=== PATIENT | male | born 1970 | race Caucasian/White ===

== ENCOUNTER 2019-03-13 07:42 | Inpatient (IN) | payer MEDICAID ==
[~2019-03-13] VITALS: Ht 188 cm; Wt 86.4 kg
[2019-03-13 08:30] LABS: BASOPHILS # (AUTO) 0.1 X10'3 (0-0.2); BASOPHILS % (AUTO) 0.8 % (0-1); EOSINOPHILS # (AUTO) 0.1 X10'3 (0-0.9); EOSINOPHILS % (AUTO) 0.8 % (0-6); HEMATOCRIT 47.2 % (42.0-52.0); HEMOGLOBIN 15.7 g/dl (14.0-17.9); LYMPHOCYTES # (AUTO) 1.7 X10'3 (1.1-4.8); LYMPHOCYTES % (AUTO) 13.2 % (21-51); MEAN CORPUSCULAR HEMOGLOBIN 29.2 PG (27.0-31.0); MEAN CORPUSCULAR HGB CONC 33.3 g/dL (33.0-36.5); MEAN CORPUSCULAR VOLUME 87.6 FL (78-98); MEAN PLATELET VOLUME 9.6 FL (7.4-10.4); MONOCYTES # (AUTO) 0.9 X10'3 (0-0.9); MONOCYTES % (AUTO) 7.1 % (2-12); NEUTROPHILS # (AUTO) 10.2 X10'3 (1.8-7.7); NEUTROPHILS % (AUTO) 78.1 % (42-75); PLATELET COUNT 341 X10'3 (140-440); RED BLOOD COUNT 5.38 X10'6 (4.70-6.10); RED CELL DISTRIBUTION WIDTH 15.1 % (11.5-14.5); WHITE BLOOD COUNT 13.1 X10'3 (4.5-11.0)
[2019-03-13 08:47] LABS: ALANINE AMINOTRANSFERASE 23 U/L (12-78); ALBUMIN 3.6 G/DL (3.4-5.0); ALBUMIN/GLOBULIN RATIO 0.7 (1.1-1.5); ALKALINE PHOSPHATASE 121 IU/L (46-116); ANION GAP 15 (8-16); ASPARTATE AMINO TRANSFERASE 24 U/L (10-37); BILIRUBIN,TOTAL 0.8 MG/DL (0.1-1.0); BLOOD UREA NITROGEN 8 MG/DL (7-18); BUN/CREATININE RATIO 6.1 (5.4-32.0); CALCIUM 9.8 MG/DL (8.5-10.1); CHLORIDE 97 MMOL/L (99-107); CREATININE 1.32 MG/DL (0.60-1.10); GLUCOSE 86 MG/DL (70-104); MAGNESIUM 2.1 MG/DL (1.5-2.4); POTASSIUM 3.3 MMOL/L (3.5-5.1); SODIUM 137 MMOL/L (135-145); TOTAL CARBON DIOXIDE 25.4 MMOL/L (24-32); TOTAL PROTEIN 9.1 G/DL (6.4-8.2); eGFR 57 ML/MIN
[2019-03-13 08:52] LABS: PARTIAL THROMBOPLASTIN TIME 31 SECONDS (22-32)
[2019-03-13] MEDS ORDERED: vancomycin/NS 1 GM ADD-VANTAGE 250 ML IV ONE (09:05)
[2019-03-13] MEDS ORDERED: levoFLOXACIN-Levaquin 750MG/D5 150 ML IV ONE (09:05)
[2019-03-13 09:34] LABS: CLARITY,URINE CLEAR (Clear); COLOR,URINE YELLOW (Yellow); GLUCOSE, URINE NEGATIVE (Neg); KETONES,URINE 40 mg/dl (Neg); LEUKOCYTE ESTERASE ,URINE NEGATIVE (Neg); NITRITES, URINE NEGATIVE (Neg); OCCULT BLOOD,URINE NEGATIVE (Neg); PROTEIN,URINE TRACE mg/dl (Neg)
[2019-03-13 09:35] LABS: UA COLLECTION TYPE CLN CATCH MIDSTREAM
[2019-03-13] MEDS ORDERED: normal saline 1000ML IV soln IV ONE (09:35)
[2019-03-13 09:53] LABS: MUCUS STRANDS FEW /LPF (Neg); SQUAMOUS EPITHELIAL CELL,UR FEW /LPF (FEW)
[2019-03-13 09:54] LABS: HYALINE CASTS 0-3 /LPF (NEGATIVE)
[2019-03-13 10:01] LABS: BACTERIA,URINE FEW /HPF (Neg); RBC,URINE 0-2 /HPF (0-2)
[2019-03-13 10:03] LABS: SPERM MODERATE /HPF (NEGATIVE)
[2019-03-13] MEDS ORDERED: magnesium Cl slow-release 64mg tablet PO PRN (10:05)
[2019-03-13] MEDS ORDERED: magnesium 4gm in 100ml NS 100 ML IV PRN (10:05)
[2019-03-13] MEDS ORDERED: potassium CL 10mEq/100ml bag 100 ML IV PRN ×2 (10:05)
[2019-03-13] MEDS ORDERED: magnesium hydroxide 30ml (MOM) UD suspension PO PRN (10:05)
[2019-03-13] MEDS ORDERED: magnesium 2GM in 50ml NS 50 ML IV PRN (10:05)
[2019-03-13] MEDS ORDERED: ondansetron/PF 4mg/2ml inj IV PRN (10:05)
[2019-03-13] MEDS ORDERED: mag hydrox/Alum hydrox/simeth 30ml oral suspension PO PRN (10:05)
[2019-03-13] MEDS ORDERED: morphine 2 MG/ML inj. syringe IV PRN ×2 (10:05)
[2019-03-13] MEDS ORDERED: acetaminophen 325mg tablet PO PRN (10:05)
[2019-03-13] MEDS ORDERED: HYDROcodone/acetaminophen 5mg/325mg tablet PO PRN (10:05)
[2019-03-13] MEDS ORDERED: potassium Cl 20 mEq SR tablet PO PRN (10:05)
--- NOTE | 2019-03-13 11:01 | NUR ---
Received patient report from Mae NATALY
[2019-03-13 12:15] VITALS: BP 114/76
[2019-03-13 13:35] LABS: URINE AMPHETAMINE SCREEN POSITIVE (Neg); URINE BARBITUATE SCREEN NEGATIVE (Neg); URINE BENZODIAZEPINES SCREEN NEGATIVE (Neg); URINE CANNABINOID SCREEN NEGATIVE (Neg); URINE COCAINE SCREEN NEGATIVE (Neg); URINE METHADONE SCREEN NEGATIVE (Neg); URINE OPIATE SCREEN NEGATIVE (Neg); URINE PHENCYCLIDINE SCREEN NEGATIVE (Neg)
[2019-03-13] MEDS: potassium Cl 20 mEq SR tablet PO PRN ×2 (14:20→19:40)
[2019-03-13] MEDS: normal saline 1000ml 1,000 ML IV SCH ×2 (14:21→19:34)
--- NOTE | 2019-03-13 16:17 | NUR ---
Paged Dr. Lepe about patient refusing tele monitor. Waiting for response.
--- NOTE | 2019-03-13 18:23 | NUR ---
Patient report given to Mimi Coombs RN
[2019-03-13] MEDS: LORazepam 1 MG tablet PO PRN (20:44)
[2019-03-13 22:00] VITALS: BP 128/78
--- NOTE | 2019-03-13 22:39 | NUR ---
AFTER SEVERAL ATTEMPTS OF PLACING PIV, EVEN AFTER DOSE OF ATIVAN, UNABLE TO GAIN ACCESS. CALLED MD. NEW ORDER FOR CLINDAMYCIN 300MG PO Q 8HRS, UNTIL IV ACCESS CAN BE OBTAINED.
[2019-03-13] MEDS: VANCOmycin 1250MG/NS 250ml Bag 250 ML IV SCH (23:00)
[2019-03-14] MEDS: clindamycin 150mg capsule PO SCH ×3 (00:18→17:46)
[2019-03-14] MEDS: LORazepam 1 MG tablet PO PRN ×2 (01:01→19:22)
[2019-03-14 06:00] VITALS: BP 125/61
[2019-03-14] MEDS: normal saline 1000ml 1,000 ML IV SCH (06:05)
--- NOTE | 2019-03-14 06:08 | NUR ---
Problems reprioritized. Patient report given, questions answered & plan of care reviewed with TOD Cody.
--- NOTE | 2019-03-14 06:25 | NUR ---
RECEIVED REPORT FROM TOD VEGA
[2019-03-14] MEDS: levoFLOXACIN-Levaquin 750MG/D5 150 ML IV SCH (08:00)
[2019-03-14] MEDS: K and/or MAG REPLACEMENT MC SCH (08:00)
[2019-03-14] MEDS: enoxaparin 40mg/0.4ml syringe SQ SCH (08:09)
--- NOTE | 2019-03-14 08:46 | NUR ---
gave report to kari singh
[2019-03-14 09:13] LABS: BASOPHILS # (AUTO) 0.1 X10'3 (0-0.2); EOSINOPHILS # (AUTO) 0.1 X10'3 (0-0.9); EOSINOPHILS % (AUTO) 1.6 % (0-6); HEMATOCRIT 39.2 % (42.0-52.0); LYMPHOCYTES % (AUTO) 26.2 % (21-51); MEAN CORPUSCULAR HEMOGLOBIN 28.7 PG (27.0-31.0); MEAN CORPUSCULAR HGB CONC 33.2 g/dL (33.0-36.5); MEAN CORPUSCULAR VOLUME 86.5 FL (78-98); MEAN PLATELET VOLUME 9.7 FL (7.4-10.4); MONOCYTES # (AUTO) 1.3 X10'3 (0-0.9); MONOCYTES % (AUTO) 16.7 % (2-12); NEUTROPHILS # (AUTO) 4.2 X10'3 (1.8-7.7); NEUTROPHILS % (AUTO) 54.5 % (42-75); PLATELET COUNT 287 X10'3 (140-440); RED BLOOD COUNT 4.53 X10'6 (4.70-6.10); RED CELL DISTRIBUTION WIDTH 14.8 % (11.5-14.5); WHITE BLOOD COUNT 7.6 X10'3 (4.5-11.0)
[2019-03-14 09:20] LABS: ALBUMIN 2.6 G/DL (3.4-5.0); ANION GAP 9 (8-16); BLOOD UREA NITROGEN 5 MG/DL (7-18); BUN/CREATININE RATIO 6.3 (5.4-32.0); CALCIUM 9.1 MG/DL (8.5-10.1); CHLORIDE 108 MMOL/L (99-107); CREATININE 0.79 MG/DL (0.60-1.10); GLUCOSE 87 MG/DL (70-104); MAGNESIUM 2.1 MG/DL (1.5-2.4); POTASSIUM 3.7 MMOL/L (3.5-5.1); SODIUM 144 MMOL/L (135-145); TOTAL CARBON DIOXIDE 26.8 MMOL/L (24-32); eGFR > 90 ML/MIN
[2019-03-14 10:00] VITALS: BP 114/79
[2019-03-14] MEDS ORDERED: FLU VACC QS2019-20 36MOS UP/PF 60 MCG/0.5 ML SYRINGE IMVAC ONE (10:00)
[2019-03-14] MEDS: VANCOmycin 1250MG/NS 250ml Bag 250 ML IV SCH ×2 (10:27→19:22)
[2019-03-14 13:29] LABS: PLATELET ESTIMATE NORMAL; TOTAL CELLS COUNTED 100
[2019-03-14 13:30] LABS: LARGE PLATELETS FEW
--- NOTE | 2019-03-14 13:47 | NUR ---
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 Pt has normal strength PO 75-100% meals meeting needs and current wt is pt stated w/ no prior wt hx. At this time pt does not meet minimum malnutrition criteria. Addendum: 03/14/19 at [address] Amended: Links added.
[2019-03-14 18:00] VITALS: BP 131/91
--- NOTE | 2019-03-14 18:30 | NUR ---
Problems reprioritized. Patient report given, questions answered & plan of care reviewed with TOD Caruso.
[2019-03-14] MEDS: lactobacillus rhamnosus 10,000 MMU CELLS/CAPSULE PO SCH (19:22)
[2019-03-14 22:00] VITALS: BP 114/78
[2019-03-15] MEDS: clindamycin 150mg capsule PO SCH ×2 (00:31→08:01)
[2019-03-15] MEDS: normal saline 1000ml 1,000 ML IV SCH ×3 (02:05→12:05)
[2019-03-15] MEDS: VANCOmycin 1250MG/NS 250ml Bag 250 ML IV SCH ×3 (02:53→19:15)
--- NOTE | 2019-03-15 06:21 | NUR ---
Patient in room [facility] 4021. I have received report from Shelley and had the opportunity to ask questions and assume patient care.
--- NOTE | 2019-03-15 06:24 | NUR ---
Received report from Zuly RN
[2019-03-15 06:38] VITALS: BP 118/70
[2019-03-15] MEDS: K and/or MAG REPLACEMENT MC SCH (08:00)
[2019-03-15] MEDS: lactobacillus rhamnosus 10,000 MMU CELLS/CAPSULE PO SCH ×2 (08:01→19:15)
[2019-03-15] MEDS: enoxaparin 40mg/0.4ml syringe SQ SCH (08:02)
[2019-03-15] MEDS: levoFLOXACIN-Levaquin 750MG/D5 150 ML IV SCH (08:06)
[2019-03-15 09:26] LABS: BASOPHILS # (AUTO) 0.1 X10'3 (0-0.2); BASOPHILS % (AUTO) 1.2 % (0-1); EOSINOPHILS # (AUTO) 0.2 X10'3 (0-0.9); HEMATOCRIT 40.3 % (42.0-52.0); HEMOGLOBIN 13.4 g/dl (14.0-17.9); LYMPHOCYTES % (AUTO) 31.2 % (21-51); MEAN CORPUSCULAR HEMOGLOBIN 29.2 PG (27.0-31.0); MEAN CORPUSCULAR HGB CONC 33.2 g/dL (33.0-36.5); MEAN CORPUSCULAR VOLUME 87.8 FL (78-98); MEAN PLATELET VOLUME 9.8 FL (7.4-10.4); MONOCYTES # (AUTO) 0.9 X10'3 (0-0.9); MONOCYTES % (AUTO) 14.7 % (2-12); NEUTROPHILS # (AUTO) 3.1 X10'3 (1.8-7.7); NEUTROPHILS % (AUTO) 49.9 % (42-75); PLATELET COUNT 334 X10'3 (140-440); RED BLOOD COUNT 4.58 X10'6 (4.70-6.10); RED CELL DISTRIBUTION WIDTH 15.2 % (11.5-14.5); WHITE BLOOD COUNT 6.3 X10'3 (4.5-11.0)
[2019-03-15 09:36] LABS: ALBUMIN 2.6 G/DL (3.4-5.0); ANION GAP 8 (8-16); BLOOD UREA NITROGEN 10 MG/DL (7-18); CALCIUM 8.3 MG/DL (8.5-10.1); CHLORIDE 107 MMOL/L (99-107); CREATININE 0.77 MG/DL (0.60-1.10); GLUCOSE 97 MG/DL (70-104); MAGNESIUM 1.8 MG/DL (1.5-2.4); POTASSIUM 4.1 MMOL/L (3.5-5.1); SODIUM 142 MMOL/L (135-145); TOTAL CARBON DIOXIDE 27.4 MMOL/L (24-32); eGFR > 90 ML/MIN
[2019-03-15 10:23] VITALS: BP 120/76
[2019-03-15] MEDS ORDERED: VANCOMYCIN LEVEL IV ONE (10:30)
[2019-03-15 11:10] VITALS: BP 120/76
[2019-03-15] MEDS ORDERED: ATOM60CA PO (11:12)
[2019-03-15] MEDS ORDERED: BUPR300T53 PO (11:12)
[2019-03-15] MEDS ORDERED: cefepime 1GM in D5W 50mL 50 ML IV SCH (11:45)
[2019-03-15] MEDS: cefepime 1GM/NS ADD-VANTAGE 100 ML IV SCH ×2 (11:45→16:52)
[2019-03-15] MEDS ORDERED: cefepime 1GM/NS ADD-VANTAGE 100 ML IV SCH (11:48)
--- NOTE | 2019-03-15 12:13 | NUR ---
Student documentation:I have reviewed and agree with all interventions, assessments performed and documented by Cruzito Perla.
--- NOTE | 2019-03-15 12:20 | NUR ---
Problems reprioritized. Patient report given, questions answered & plan of care reviewed with Shelley BARON.
[2019-03-15 18:00] VITALS: BP 132/78
[2019-03-15] MEDS: LORazepam 1 MG tablet PO PRN (19:15)
[2019-03-15 22:00] VITALS: BP 129/77
[2019-03-16] MEDS: cefepime 1GM/NS ADD-VANTAGE 100 ML IV SCH ×2 (00:34→09:03)
[2019-03-16] MEDS: normal saline 1000ml 1,000 ML IV SCH ×3 (00:35→20:00)
[2019-03-16] MEDS: VANCOmycin 1250MG/NS 250ml Bag 250 ML IV SCH (03:31)
[2019-03-16 06:00] VITALS: BP 152/96
[2019-03-16 06:16] LABS: BASOPHILS % (AUTO) 0.3 % (0-1); EOSINOPHILS # (AUTO) 0.2 X10'3 (0-0.9); EOSINOPHILS % (AUTO) 2.9 % (0-6); HEMATOCRIT 41.7 % (42.0-52.0); HEMOGLOBIN 13.8 g/dl (14.0-17.9); LYMPHOCYTES # (AUTO) 2.7 X10'3 (1.1-4.8); LYMPHOCYTES % (AUTO) 32.7 % (21-51); MEAN CORPUSCULAR HEMOGLOBIN 28.9 PG (27.0-31.0); MEAN CORPUSCULAR VOLUME 87.6 FL (78-98); MEAN PLATELET VOLUME 9.1 FL (7.4-10.4); MONOCYTES # (AUTO) 1.1 X10'3 (0-0.9); MONOCYTES % (AUTO) 13.1 % (2-12); NEUTROPHILS # (AUTO) 4.2 X10'3 (1.8-7.7); PLATELET COUNT 358 X10'3 (140-440); RED BLOOD COUNT 4.75 X10'6 (4.70-6.10); RED CELL DISTRIBUTION WIDTH 15.1 % (11.5-14.5); WHITE BLOOD COUNT 8.3 X10'3 (4.5-11.0)
[2019-03-16 06:30] LABS: ALBUMIN 2.5 G/DL (3.4-5.0); ANION GAP 9 (8-16); BLOOD UREA NITROGEN 14 MG/DL (7-18); BUN/CREATININE RATIO 14.6 (5.4-32.0); CALCIUM 8.5 MG/DL (8.5-10.1); CHLORIDE 107 MMOL/L (99-107); CREATININE 0.96 MG/DL (0.60-1.10); GLUCOSE 97 MG/DL (70-104); MAGNESIUM 1.8 MG/DL (1.5-2.4); POTASSIUM 4.3 MMOL/L (3.5-5.1); SODIUM 141 MMOL/L (135-145); TOTAL CARBON DIOXIDE 25.3 MMOL/L (24-32); eGFR 83 ML/MIN
[2019-03-16] MEDS: K and/or MAG REPLACEMENT MC SCH (08:00)
[2019-03-16] MEDS: lactobacillus rhamnosus 10,000 MMU CELLS/CAPSULE PO SCH ×2 (09:03→20:00)
[2019-03-16] MEDS: buPROPion SR 150mg tablet PO SCH ×2 (09:03→20:00)
[2019-03-16] MEDS: enoxaparin 40mg/0.4ml syringe SQ SCH (09:04)
[2019-03-16 10:00] VITALS: BP 138/83
[2019-03-16] MEDS: clindamycin 150mg capsule PO SCH ×2 (15:55→20:00)
[2019-03-16 17:09] LABS: HIV ANTIBODY 1&2 RAPID NON-REACTIVE (Neg)
[2019-03-16 18:00] VITALS: BP 133/89
--- NOTE | 2019-03-16 20:00 | NUR ---
Patient refused to be reconnected to his iv fluids after nurse disconnected him for shower. Patient stated his is taking in plenty of fluids.
[2019-03-16 22:00] VITALS: BP 126/89
[2019-03-17] MEDS: clindamycin 150mg capsule PO SCH ×3 (02:04→13:34)
[2019-03-17] MEDS: normal saline 1000ml 1,000 ML IV SCH ×2 (04:05→14:05)
[2019-03-17 06:00] VITALS: BP 116/67
[2019-03-17 06:28] LABS: BASOPHILS # (AUTO) 0.1 X10'3 (0-0.2); BASOPHILS % (AUTO) 0.9 % (0-1); EOSINOPHILS # (AUTO) 0.2 X10'3 (0-0.9); EOSINOPHILS % (AUTO) 1.9 % (0-6); HEMATOCRIT 41.8 % (42.0-52.0); HEMOGLOBIN 14.1 g/dl (14.0-17.9); LYMPHOCYTES # (AUTO) 2.8 X10'3 (1.1-4.8); LYMPHOCYTES % (AUTO) 32.8 % (21-51); MEAN CORPUSCULAR HEMOGLOBIN 29.3 PG (27.0-31.0); MEAN CORPUSCULAR HGB CONC 33.7 g/dL (33.0-36.5); MEAN CORPUSCULAR VOLUME 86.9 FL (78-98); MONOCYTES % (AUTO) 11.9 % (2-12); NEUTROPHILS # (AUTO) 4.5 X10'3 (1.8-7.7); NEUTROPHILS % (AUTO) 52.5 % (42-75); PLATELET COUNT 386 X10'3 (140-440); RED BLOOD COUNT 4.81 X10'6 (4.70-6.10); RED CELL DISTRIBUTION WIDTH 14.9 % (11.5-14.5); WHITE BLOOD COUNT 8.6 X10'3 (4.5-11.0)
[2019-03-17 06:33] LABS: ALBUMIN 2.7 G/DL (3.4-5.0); ANION GAP 8 (8-16); BLOOD UREA NITROGEN 16 MG/DL (7-18); BUN/CREATININE RATIO 18.2 (5.4-32.0); CALCIUM 8.7 MG/DL (8.5-10.1); CHLORIDE 107 MMOL/L (99-107); CREATININE 0.88 MG/DL (0.60-1.10); GLUCOSE 99 MG/DL (70-104); MAGNESIUM 1.9 MG/DL (1.5-2.4); POTASSIUM 4.2 MMOL/L (3.5-5.1); SODIUM 141 MMOL/L (135-145); TOTAL CARBON DIOXIDE 26.4 MMOL/L (24-32); eGFR > 90 ML/MIN
--- NOTE | 2019-03-17 06:40 | NUR ---
Problems reprioritized. Patient report given, questions answered & plan of care reviewed with Smiley BARON.
[2019-03-17] MEDS: lactobacillus rhamnosus 10,000 MMU CELLS/CAPSULE PO SCH (07:54)
[2019-03-17] MEDS: buPROPion SR 150mg tablet PO SCH (07:54)
[2019-03-17] MEDS: enoxaparin 40mg/0.4ml syringe SQ SCH (07:56)
[2019-03-17] MEDS: K and/or MAG REPLACEMENT MC SCH (08:00)
[2019-03-17 10:00] VITALS: BP 117/73
[2019-03-17] MEDS ORDERED: LACT1CAP26 PO (11:37)
[2019-03-17] MEDS ORDERED: CLE150C PO (11:37)
--- NOTE | 2019-03-17 12:35 | NUR ---
Initial: Pt PO 100% meals since admit meeting needs. LBM 03/15. No nutrition concerns at this time. Will continue to monitor. Rec: 1. continue regular diet 2. wt per rx Addendum: 03/17/19 at [address] Amended: Links added.
--- NOTE | 2019-03-17 13:24 | NUR ---
[facility] brought up supplies for pt to take and perform dressing changes until pt's appointement with the wound care clinic. Pt was given, 4x4 gauze, gauze rolls, xeroform gauze, medipore tape, barrier spray, and optifoams to help provide an easy alternative dressing pt can perform after discharge. Attempted to educate pt regarding daily dressing changes, materials to use and process but pt decided to pace about the room, remove hospital gown and redirect to wanting to discharge. Pt did not give enough attention to educate sufficiently.
--- NOTE | 2019-03-17 14:24 | NUR ---
pt refused pics
== END 2019-03-17 16:53 | disposition home or self-care (01) | DRG 720 ==
LOC: ER 07:43 → ED HOLD 10:23 → ORTHO 4S 11:40
PROVIDERS: ADMIT Hospitalist; ATTEND Family Medicine
DX: A41.9 Sepsis, unspecified organism (principal); L03.115 Cellulitis of right lower limb; F15.10 Other stimulant abuse, uncomplicated; B95.62 Methicillin resistant Staphylococcus aureus infection as the cause of diseases classified elsewhere; F17.210 Nicotine dependence, cigarettes, uncomplicated; R01.1 Cardiac murmur, unspecified; Z59.0 Homelessness; Z23 Encounter for immunization
CPT/HCPCS: 36415; 73721; 76881; 76937; 80048; 80053; 80202; 80305; 81001; 83605; 83735; 84145; 85025; 85610; 85651; 85730; 86140; 86703; 86803; 87040; 87070; 87077; 87081; 87088; 87186; 93306; 96365; 99285; G0378; J0692; J1650; J1956; J3370; J7030; Q2037

== ENCOUNTER 2019-04-16 15:12 | Emergency (ER) | payer MEDICAID ==
[~2019-04-16] VITALS: Ht 188 cm; Wt 83.0 kg
[~2019-04-16 15:12] MED LIST: ATOM60CA PO; BUPR300T53 PO; CLE150C PO; LACT1CAP26 PO
[2019-04-16 15:16] VITALS: BP 143/89
== END 2019-04-16 16:16 | disposition home or self-care (01) ==
LOC: ER 15:12
DX: Z20.6 Contact with and (suspected) exposure to human immunodeficiency virus [HIV] (principal); F99 Mental disorder, not otherwise specified; F10.99 Alcohol use, unspecified with unspecified alcohol-induced disorder; F15.10 Other stimulant abuse, uncomplicated; Z56.0 Unemployment, unspecified
CPT/HCPCS: 99281

== ENCOUNTER 2019-08-26 11:51 | Emergency (ER) | payer MEDICAID ==
--- NOTE | 2019-08-26 12:49 | NUR ---
Patient used the bathroom then left the lobby.
== END 2019-08-26 12:50 | disposition left against medical advice (07) ==
LOC: ER 11:53
DX: L08.9 Local infection of the skin and subcutaneous tissue, unspecified (principal); Z53.21 Procedure and treatment not carried out due to patient leaving prior to being seen by health care provider

== ENCOUNTER 2019-09-30 15:49 | Emergency (ER) | payer MEDICAID ==
[~2019-09-30] VITALS: Ht 188 cm; Wt 76.4 kg
[2019-09-30 15:51] VITALS: BP 124/75
== END 2019-09-30 17:08 | disposition home or self-care (01) ==
LOC: ER 15:49
DX: L98.8 Other specified disorders of the skin and subcutaneous tissue (principal); F15.90 Other stimulant use, unspecified, uncomplicated; Z56.0 Unemployment, unspecified; Z59.0 Homelessness; Z88.5 Allergy status to narcotic agent; Z79.899 Other long term (current) drug therapy
CPT/HCPCS: 99281